=== PATIENT | male | born 1935 | race African-American/Black ===

== ENCOUNTER 2020-04-27 19:33 | Inpatient (IN) ==
[~2020-04-27 19:33] MED LIST: DEXAMETHASONE 10 MG/1 ML VIAL IV STA
[2020-04-27] MEDS ORDERED: SODIUM CHLORIDE 0.9% 1,000 ML IV STA ×2 (19:46→20:32)
[2020-04-27] MEDS ORDERED: ALBUTEROL 2.5 MG/3 ML NEB RESP TX STA (19:46)
[2020-04-27] MEDS ORDERED: ALBUTEROL/IPRATROPIUM 3 ML NEB RESP TX STA (19:46)
[2020-04-27] MEDS ORDERED: DEXAMETHASONE 10 MG/1 ML VIAL ONE (19:50)
[2020-04-27 20:13] LABS: ABG Base Excess -1.5 MMOL/L (-2.5-2.5); ABG Oxygen Saturation 89.5 % (95-100); ABG PCO2 32.8 MM HG (35-48); ABG PH 7.435 (7.35-7.45); ABG PO2 60.6 MM HG (80-95); ABG TCO2 19.8 MMOL/L (23-27); Allen Test Positive
[2020-04-27 20:15] LABS: Basophils % 0.1 % (0.0-0.8); Eosinophils % 0.1 % (0.00-10.9); Hematocrit 36.8 VOL% (42.0-52.0); Hemoglobin 10.9 GM/DL (14.0-18.0); Immature Granulocytes % 1.2 %; Immature Granulocytes Absolute 0.08 #; Lymphocytes # 0.6 10*3/uL (1.4-4.0); Mean Corpuscular HGB Conc 29.6 GM/DL (32-36); Mean Corpuscular Volume 100.8 FL (87-102); Mean Platelet Volume 10.5 FL (9.6-12.0); Monocytes % 4.8 % (1.7-12.7); Neutrophils % 84.8 % (38.7-73.9); Platelet Count 186 T/CUMM (130-400); Red Blood Count 3.65 MC/CUMM (3.8-5.5); Red Cell Distribution Width 13.1 % (9.3-17.3); White Blood Count 6.9 T/CUMM (4-12)
[2020-04-27] MEDS ORDERED: DEXAMETHASONE 10 MG/1 ML VIAL IV SCH (20:22)
[2020-04-27] MEDS ORDERED: VANCOMYCIN INJ 1,000 MG in SODIUM CHLORIDE 0.9% 250 ML IV STA (20:23)
[2020-04-27] MEDS ORDERED: PIPERACILLIN/TAZOBACTAM 3,375 MG in SODIUM CHLORIDE 0.9% 100 ML IV STA (20:23)
[2020-04-27] MEDS ORDERED: ACETAMINOPHEN 650 MG SUPP RECTAL STA (20:23)
[2020-04-27 20:29] LABS: Alanine Aminotransferase 11 U/L (16-61); Albumin 2.5 G/DL (3.4-5.0); Alkaline Phosphatase 72 U/L (45-117); Aspartate Amino Transferase 38 U/L (0-37); Blood Urea Nitrogen 59 MG/DL (7-18); Calcium 8.6 MG/DL (8.5-10.1); Estimated Glom Filtration Rate 22 ML/MIN; Glucose 88 MG/DL (74-106); Osmolality,Calculated 322.3 MOS/KG (273-304); Total Protein 7.1 G/DL (6.4-8.3)
[2020-04-27 20:30] LABS: Apearance,Urine CLOUDY (Clear); Bilirubin,Urine Negative (Negative); Blood, Urine Negative (Negative); Glucose,Urine (UA) Negative (Negative); Ketones,Urine 5 mg/dL (Negative); Mucus,Urine Occasional /LPF (Occasional); Nitrite,Urine Negative (Negative); Protein,Urine 100 MG/DL; Squamous Epithelial Cell,Urine Occasional /HPF (0-10); Urine Color Amber (Yellow); Urine Specific Gravity 1.018 (1.001-1.035); WBC,Urine 3 /HPF (0-6)
[2020-04-27] MEDS ORDERED: DILTIAZEM 50 MG/10 ML VIAL IV STA (20:32)
[2020-04-27 20:36] LABS: PT Patient Result 10.8 SECS (9.8-11.9)
[2020-04-27 20:38] LABS: Lymphocytes 8 % (20-55); Macrocytosis Slight; Platelet Estimate Adequate; Polychromasia Slight; Segmented Neutrophils 85 % (50-85); Total Cells Counted 100
[2020-04-27] MEDS ORDERED: NOREPINEPHRINE 4 MG/4 ML VIAL IV ONE (21:09)
[2020-04-27] MEDS ORDERED: ETOMIDATE 20 MG/10 ML VIAL IV STA (21:09)
[2020-04-27] MEDS ORDERED: ROCURONIUM 100 MG/10 ML VIAL IV STA (21:09)
[2020-04-27] MEDS ORDERED: ALBUTEROL 2.5 MG/3 ML NEB RESP TX PRN (22:08)
[2020-04-27] MEDS: dilTIAZem Drip 125 MG/125 ML PREMIX IV SCH (22:08)
[2020-04-27] MEDS ORDERED: FAMOTIDINE 20 MG/2 ML VIAL IV SCH (22:30)
[2020-04-27] MEDS: NOREPINEPHRINE 8 MG in SODIUM CHLORIDE 0.9% 242 ML IV PRN (23:13)
[2020-04-27] MEDS: SODIUM CHLORIDE 0.9% 1,000 ML IV SCH (23:13)
[2020-04-27] MEDS: METOPROLOL TARTRATE 5 MG/5 ML VIAL IV SCH (23:28)
[2020-04-27 23:29] LABS: ABG Base Excess -6.2 MMOL/L (-2.5-2.5); ABG HCO3 18.8 MMOL/L (20-26); ABG Oxygen Saturation 64.5 % (95-100); ABG PCO2 55.2 MM HG (35-48); ABG PH 7.214 (7.35-7.45); ABG PO2 46.6 MM HG (80-95); ABG TCO2 20.7 MMOL/L (23-27)
[2020-04-27 23:30] LABS: Allen Test Positive; Pt O2 Delivery Device Ventilator
[2020-04-27] MEDS ORDERED: SODIUM CHLORIDE 0.9% 500 ML IV ONE (23:58)
[2020-04-27] MEDS ORDERED: AMIODARONE INJ 150 MG in DEXTROSE 5% 100 ML IV ONE (23:59)
[2020-04-28 00:26] LABS: ABG Base Excess -7.7 MMOL/L (-2.5-2.5); ABG HCO3 18.2 MMOL/L (20-26); ABG Oxygen Saturation 91.9 % (95-100); ABG PCO2 38.8 MM HG (35-48); ABG PO2 73.9 MM HG (80-95); ABG TCO2 19.4 MMOL/L (23-27); Allen Test Positive; Pt O2 Delivery Device Ventilator
[2020-04-28 00:44] LABS: PT Patient Result 10.9 SECS (9.8-11.9)
[2020-04-28 04:57] LABS: Calcium 7.8 MG/DL (8.5-10.1); Osmolality,Calculated 327.3 MOS/KG (273-304)
[2020-04-28] MEDS: METOPROLOL TARTRATE 5 MG/5 ML VIAL IV SCH ×4 (05:23→20:42)
[2020-04-28 05:37] LABS: Basophils % 0.3 % (0.0-0.8); Hematocrit 33.9 VOL% (42.0-52.0); Immature Granulocytes % 1.4 %; Immature Granulocytes Absolute 0.11 #; Lymphocytes # 0.5 10*3/uL (1.4-4.0); Mean Corpuscular HGB Conc 29.8 GM/DL (32-36); Mean Corpuscular Volume 100.9 FL (87-102); Mean Platelet Volume 10.2 FL (9.6-12.0); Monocytes % 2.3 % (1.7-12.7); Platelet Count 159 T/CUMM (130-400); Red Blood Count 3.36 MC/CUMM (3.8-5.5); Red Cell Distribution Width 13.1 % (9.3-17.3); White Blood Count 7.8 T/CUMM (4-12)
[2020-04-28 05:38] LABS: ABG Base Excess -6.1 MMOL/L (-2.5-2.5); ABG HCO3 18.9 MMOL/L (20-26); ABG Oxygen Saturation 96.4 % (95-100); ABG PCO2 35.7 MM HG (35-48); ABG PH 7.342 (7.35-7.45); ABG PO2 94.2 MM HG (80-95); Allen Test Positive; Pt O2 Delivery Device Ventilator
[2020-04-28 05:42] LABS: Hemoglobin 10.1 GM/DL (14.0-18.0)
[2020-04-28] MEDS: SODIUM CHLORIDE 0.9% 1,000 ML IV SCH ×2 (06:36→17:00)
[2020-04-28 06:42] LABS: Lymphocytes 9 % (20-55); Platelet Estimate Adequate; Segmented Neutrophils 91 % (50-85); Total Cells Counted 100
[2020-04-28 06:43] LABS: Macrocytosis Slight
[2020-04-28] MEDS ORDERED: DEXAMETHASONE 10 MG/1 ML VIAL IV SCH (09:00)
[2020-04-28] MEDS: ZINC SULFATE 220 MG CAPSULE PO SCH (09:35)
[2020-04-28] MEDS: FAMOTIDINE 8 MG/ML 50 ML/BOTTLE PO SCH (09:35)
[2020-04-28] MEDS: PIPERACILLIN/TAZOBACTAM 3,375 MG in SODIUM CHLORIDE 0.9% 100 ML IV SCH ×2 (11:46→23:58)
[2020-04-28] MEDS: ENOXAPARIN 40 MG/0.4 ML SYRINGE SUBCUT SCH (20:42)
[2020-04-28] MEDS: dilTIAZem Drip 125 MG/125 ML PREMIX IV SCH (22:11)
[2020-04-29] MEDS: SODIUM CHLORIDE 0.9% 1,000 ML IV SCH ×4 (02:47→11:13)
[2020-04-29 04:14] LABS: ABG Base Excess -5.8 MMOL/L (-2.5-2.5); ABG Oxygen Saturation 98.5 % (95-100); ABG PCO2 29.6 MM HG (35-48); ABG PH 7.403 (7.35-7.45); ABG PO2 166.7 MM HG (80-95); Allen Test Positive; Pt O2 Delivery Device Ventilator
[2020-04-29 05:03] LABS: Basophils % 0.1 % (0.0-0.8); Hematocrit 30.6 VOL% (42.0-52.0); Hemoglobin 9.1 GM/DL (14.0-18.0); Immature Granulocytes % 1.3 %; Immature Granulocytes Absolute 0.13 #; Lymphocytes # 0.6 10*3/uL (1.4-4.0); Lymphocytes % 5.7 % (21.2-54.2); Mean Corpuscular HGB Conc 29.7 GM/DL (32-36); Mean Corpuscular Volume 99.4 FL (87-102); Mean Platelet Volume 10.3 FL (9.6-12.0); Monocytes % 3.5 % (1.7-12.7); NRBC # 0.03 10*3/uL; Neutrophils % 89.4 % (38.7-73.9); Platelet Count 145 T/CUMM (130-400); Red Blood Count 3.08 MC/CUMM (3.8-5.5); Red Cell Distribution Width 12.8 % (9.3-17.3); White Blood Count 9.8 T/CUMM (4-12)
[2020-04-29 05:16] LABS: Calcium 7.8 MG/DL (8.5-10.1); Osmolality,Calculated 326.3 MOS/KG (273-304)
[2020-04-29] MEDS: METOPROLOL TARTRATE 5 MG/5 ML VIAL IV SCH ×2 (05:28→12:41)
[2020-04-29] MEDS: FAMOTIDINE 8 MG/ML 50 ML/BOTTLE PO SCH (08:13)
[2020-04-29] MEDS: DEXAMETHASONE 4 MG/1 ML VIAL IV SCH (08:17)
[2020-04-29] MEDS: PIPERACILLIN/TAZOBACTAM 3,375 MG in SODIUM CHLORIDE 0.9% 100 ML IV SCH (11:13)
[2020-04-29] MEDS ORDERED: GLUCAGON 1 MG VIAL IM PRN (13:55)
[2020-04-29] MEDS ORDERED: DEXTROSE 50% 25 GM/50 ML VIAL IV PRN (13:55)
[2020-04-29] MEDS: SODIUM CHLORIDE 0.45% 1,000 ML IV SCH (18:05)
[2020-04-29] MEDS: INSULIN REGULAR 100 UNIT/ML SUBCUT SCH (18:16)
[2020-04-29] MEDS: ENOXAPARIN 40 MG/0.4 ML SYRINGE SUBCUT SCH (20:44)
[2020-04-29] MEDS: NYSTATIN 500,000 UNIT/5 ML UDCUP SWISH/SWAL SCH (20:44)
[2020-04-29] MEDS: METOPROLOL TARTRATE 25 MG TABLET PO SCH (21:00)
[2020-04-30] MEDS: ACETAMINOPHEN 325 MG TABLET PO PRN (00:31)
[2020-04-30] MEDS: PIPERACILLIN/TAZOBACTAM 3,375 MG in SODIUM CHLORIDE 0.9% 100 ML IV SCH ×2 (00:32→11:38)
[2020-04-30] MEDS: MIDAZOLAM 100 MG in SODIUM CHLORIDE 0.9% 80 ML IV PRN ×2 (00:59→14:37)
[2020-04-30] MEDS: dilTIAZem Drip 125 MG/125 ML PREMIX IV SCH ×2 (01:09→22:05)
[2020-04-30 04:59] LABS: Basophils % 0.1 % (0.0-0.8); Hematocrit 28.9 VOL% (42.0-52.0); Hemoglobin 8.8 GM/DL (14.0-18.0); Immature Granulocytes % 1.6 %; Immature Granulocytes Absolute 0.15 #; Lymphocytes # 0.7 10*3/uL (1.4-4.0); Lymphocytes % 7.1 % (21.2-54.2); Mean Corpuscular HGB Conc 30.4 GM/DL (32-36); Mean Corpuscular Volume 99.3 FL (87-102); Mean Platelet Volume 10.8 FL (9.6-12.0); Monocytes % 2.4 % (1.7-12.7); NRBC # 0.04 10*3/uL; Neutrophils % 88.8 % (38.7-73.9); Platelet Count 142 T/CUMM (130-400); Red Blood Count 2.91 MC/CUMM (3.8-5.5); Red Cell Distribution Width 12.6 % (9.3-17.3); White Blood Count 9.3 T/CUMM (4-12)
[2020-04-30 05:18] LABS: Calcium 7.9 MG/DL (8.5-10.1); Osmolality,Calculated 319.6 MOS/KG (273-304)
[2020-04-30] MEDS: INSULIN REGULAR 100 UNIT/ML SUBCUT SCH ×4 (06:37→17:33)
[2020-04-30] MEDS: DEXAMETHASONE 4 MG/1 ML VIAL IV SCH (08:31)
[2020-04-30] MEDS: NYSTATIN 500,000 UNIT/5 ML UDCUP SWISH/SWAL SCH ×3 (08:32→20:24)
[2020-04-30] MEDS: FAMOTIDINE 8 MG/ML 50 ML/BOTTLE PO SCH (08:32)
[2020-04-30] MEDS: ZINC SULFATE 220 MG CAPSULE PO SCH (08:32)
[2020-04-30] MEDS: METOPROLOL TARTRATE 25 MG TABLET PO SCH ×2 (08:41→20:24)
[2020-04-30] MEDS: SODIUM CHLORIDE 0.45% 1,000 ML IV SCH (14:43)
[2020-04-30] MEDS: ENOXAPARIN 40 MG/0.4 ML SYRINGE SUBCUT SCH (20:24)
[2020-05-01] MEDS: PIPERACILLIN/TAZOBACTAM 3,375 MG in SODIUM CHLORIDE 0.9% 100 ML IV SCH (00:41)
[2020-05-01] MEDS: INSULIN REGULAR 100 UNIT/ML SUBCUT SCH ×4 (00:42→17:39)
[2020-05-01] MEDS: ROCURONIUM 500 MG in SODIUM CHLORIDE 0.9% 500 ML IV PRN ×2 (03:50→19:19)
[2020-05-01 04:23] LABS: Basophils % 0.1 % (0.0-0.8); Eosinophils # 0.1 10*3/uL (0.0-0.87); Eosinophils % 0.9 % (0.00-10.9); Hematocrit 28.5 VOL% (42.0-52.0); Hemoglobin 8.8 GM/DL (14.0-18.0); Immature Granulocytes % 3.9 %; Lymphocytes # 0.7 10*3/uL (1.4-4.0); Lymphocytes % 8.9 % (21.2-54.2); Mean Corpuscular HGB Conc 30.9 GM/DL (32-36); Mean Corpuscular Volume 97.3 FL (87-102); Mean Platelet Volume 10.8 FL (9.6-12.0); Monocytes % 1.9 % (1.7-12.7); NRBC # 0.02 10*3/uL; Neutrophils % 84.3 % (38.7-73.9); Platelet Count 143 T/CUMM (130-400); Red Blood Count 2.93 MC/CUMM (3.8-5.5); Red Cell Distribution Width 12.7 % (9.3-17.3); White Blood Count 7.7 T/CUMM (4-12)
[2020-05-01 04:39] LABS: Calcium 7.6 MG/DL (8.5-10.1); Osmolality,Calculated 310.1 MOS/KG (273-304)
[2020-05-01 04:59] LABS: Macrocytosis Slight
[2020-05-01 05:00] LABS: Platelet Estimate Adequate
[2020-05-01 05:30] LABS: ABG Base Excess -6.6 MMOL/L (-2.5-2.5); ABG HCO3 18.9 MMOL/L (20-26); ABG PCO2 37.6 MM HG (35-48); ABG PH 7.313 (7.35-7.45); ABG PO2 68.6 MM HG (80-95); ABG TCO2 17.7 MMOL/L (23-27); Allen Test Positive; Pt O2 Delivery Device Ventilator
[2020-05-01] MEDS: MIDAZOLAM 100 MG in SODIUM CHLORIDE 0.9% 80 ML IV PRN (07:06)
[2020-05-01] MEDS: DEXAMETHASONE 4 MG/1 ML VIAL IV SCH (08:35)
[2020-05-01] MEDS: NYSTATIN 500,000 UNIT/5 ML UDCUP SWISH/SWAL SCH ×3 (08:35→20:45)
[2020-05-01] MEDS: METOPROLOL TARTRATE 25 MG TABLET PO SCH (08:35)
[2020-05-01] MEDS: FAMOTIDINE 8 MG/ML 50 ML/BOTTLE PO SCH (08:42)
[2020-05-01] MEDS: VANCOMYCIN INJ 1,250 MG in SODIUM CHLORIDE 0.9% 250 ML IV SCH (11:31)
[2020-05-01] MEDS: SODIUM CHLORIDE 0.45% 1,000 ML IV SCH (14:19)
[2020-05-01] MEDS: ENOXAPARIN 40 MG/0.4 ML SYRINGE SUBCUT SCH (20:45)
[2020-05-01] MEDS: dilTIAZem Drip 125 MG/125 ML PREMIX IV SCH (21:40)
[2020-05-02] MEDS: INSULIN REGULAR 100 UNIT/ML SUBCUT SCH ×3 (01:03→21:29)
[2020-05-02 03:58] LABS: Basophils % 0.2 % (0.0-0.8); Eosinophils # 0.1 10*3/uL (0.0-0.87); Eosinophils % 1.3 % (0.00-10.9); Hematocrit 32.1 VOL% (42.0-52.0); Hemoglobin 9.5 GM/DL (14.0-18.0); Immature Granulocytes % 5.1 %; Immature Granulocytes Absolute 0.48 #; Lymphocytes # 0.6 10*3/uL (1.4-4.0); Lymphocytes % 6.9 % (21.2-54.2); Mean Corpuscular HGB Conc 29.6 GM/DL (32-36); Mean Corpuscular Volume 102.2 FL (87-102); Mean Platelet Volume 10.8 FL (9.6-12.0); Monocytes % 3.1 % (1.7-12.7); NRBC # 0.04 10*3/uL; Neutrophils % 83.4 % (38.7-73.9); Platelet Count 154 T/CUMM (130-400); Red Blood Count 3.14 MC/CUMM (3.8-5.5); White Blood Count 9.3 T/CUMM (4-12)
[2020-05-02 04:12] LABS: Calcium 7.8 MG/DL (8.5-10.1); Osmolality,Calculated 302.6 MOS/KG (273-304)
[2020-05-02 04:26] LABS: Band Neutrophils 1 % (0-10); Lymphocytes 6 % (20-55); Segmented Neutrophils 90 % (50-85); Total Cells Counted 100
[2020-05-02 04:27] LABS: Hypochromasia Slight; Macrocytosis Slight; Platelet Estimate Normal
[2020-05-02 04:57] LABS: ABG Base Excess -6.8 MMOL/L (-2.5-2.5); ABG HCO3 19.8 MMOL/L (20-26); ABG Oxygen Saturation 93.5 % (95-100); ABG PCO2 44.4 MM HG (35-48); ABG PH 7.267 (7.35-7.45); ABG PO2 73.1 MM HG (80-95); ABG TCO2 21.2 MMOL/L (23-27); Allen Test Positive; Pt O2 Delivery Device Ventilator
[2020-05-02] MEDS: ROCURONIUM 500 MG in SODIUM CHLORIDE 0.9% 500 ML IV PRN ×2 (07:06→20:30)
[2020-05-02] MEDS: MIDAZOLAM 100 MG in SODIUM CHLORIDE 0.9% 80 ML IV PRN (07:19)
[2020-05-02] MEDS: FAMOTIDINE 8 MG/ML 50 ML/BOTTLE PO SCH (08:17)
[2020-05-02] MEDS: NYSTATIN 500,000 UNIT/5 ML UDCUP SWISH/SWAL SCH ×3 (08:17→20:13)
[2020-05-02] MEDS: ZINC SULFATE 220 MG CAPSULE PO SCH (08:18)
[2020-05-02] MEDS: DEXAMETHASONE 4 MG/1 ML VIAL IV SCH (08:20)
[2020-05-02] MEDS: ALBUTEROL 2.5 MG/3 ML NEB RESP TX SCH ×2 (11:30→20:08)
[2020-05-02] MEDS: VANCOMYCIN INJ 1,250 MG in SODIUM CHLORIDE 0.9% 250 ML IV SCH (11:49)
[2020-05-02] MEDS: SODIUM CHLORIDE 0.45% 1,000 ML IV SCH (11:50)
[2020-05-02] MEDS ORDERED: MAGNESIUM HYDROXIDE SUSP 30 ML UDCUP PO PRN (17:45)
[2020-05-02] MEDS ORDERED: POLYVINYL ALCOHOL 1.4% OPH SOLN 15 ML BOTTLE BOTH EYES PRN (17:45)
[2020-05-02] MEDS ORDERED: traMADol 50 MG TABLET PO PRN (17:45)
[2020-05-02] MEDS: DONEPEZIL 5 MG TABLET PO SCH (20:12)
[2020-05-02] MEDS: CARBIDOPA/LEVODOPA 25-100 MG TABLET PO SCH (20:12)
[2020-05-02] MEDS: BIMATOPROST 0.01% OPH SOLN 2.5 ML BOTTLE LEFT EYE SCH (20:13)
[2020-05-02] MEDS: ENOXAPARIN 40 MG/0.4 ML SYRINGE SUBCUT SCH (20:13)
[2020-05-02] MEDS: dilTIAZem Drip 125 MG/125 ML PREMIX IV SCH (21:31)
[2020-05-03] MEDS: ALBUTEROL 2.5 MG/3 ML NEB RESP TX SCH ×3 (01:00→23:08)
[2020-05-03] MEDS: INSULIN REGULAR 100 UNIT/ML SUBCUT SCH ×2 (03:23→20:21)
[2020-05-03 03:34] LABS: ABG Base Excess -5.9 MMOL/L (-2.5-2.5); ABG HCO3 21.2 MMOL/L (20-26); ABG Oxygen Saturation 94.6 % (95-100); ABG PCO2 49.7 MM HG (35-48); ABG PH 7.248 (7.35-7.45); ABG PO2 76.9 MM HG (80-95); ABG TCO2 22.7 MMOL/L (23-27); Allen Test Positive; Pt O2 Delivery Device Ventilator
[2020-05-03 05:06] LABS: Basophils % 0.2 % (0.0-0.8); Eosinophils # 0.2 10*3/uL (0.0-0.87); Eosinophils % 1.4 % (0.00-10.9); Hematocrit 30.6 VOL% (42.0-52.0); Immature Granulocytes % 3.8 %; Lymphocytes # 0.3 10*3/uL (1.4-4.0); Lymphocytes % 3.2 % (21.2-54.2); Mean Corpuscular HGB Conc 29.4 GM/DL (32-36); Mean Corpuscular Volume 100.3 FL (87-102); Monocytes % 4.6 % (1.7-12.7); NRBC # 0.02 10*3/uL; Neutrophils % 86.8 % (38.7-73.9); Platelet Count 151 T/CUMM (130-400); Red Blood Count 3.05 MC/CUMM (3.8-5.5); White Blood Count 10.5 T/CUMM (4-12)
[2020-05-03 05:37] LABS: Calcium 7.9 MG/DL (8.5-10.1)
[2020-05-03 05:58] LABS: Band Neutrophils 1 % (0-10); Lymphocytes 4 % (20-55); Segmented Neutrophils 94 % (50-85); Total Cells Counted 100
[2020-05-03 05:59] LABS: Macrocytosis Slight; Ovalocytes Slight; Platelet Estimate Adequate
[2020-05-03] MEDS: ROCURONIUM 500 MG in SODIUM CHLORIDE 0.9% 500 ML IV PRN ×2 (06:43→18:19)
[2020-05-03] MEDS: SODIUM CHLORIDE 0.45% 1,000 ML IV SCH ×2 (06:50→23:11)
[2020-05-03] MEDS: FERROUS SULFATE 325 MG TABLET PO SCH (08:00)
[2020-05-03] MEDS: CARBIDOPA/LEVODOPA 25-100 MG TABLET PO SCH ×3 (08:01→20:08)
[2020-05-03] MEDS: NYSTATIN 500,000 UNIT/5 ML UDCUP SWISH/SWAL SCH ×3 (08:01→20:07)
[2020-05-03] MEDS: FAMOTIDINE 8 MG/ML 50 ML/BOTTLE PO SCH (08:01)
[2020-05-03] MEDS: DEXAMETHASONE 4 MG/1 ML VIAL IV SCH (08:02)
[2020-05-03] MEDS: VANCOMYCIN INJ 1,250 MG in SODIUM CHLORIDE 0.9% 250 ML IV SCH (12:08)
[2020-05-03] MEDS: NOREPINEPHRINE 8 MG in SODIUM CHLORIDE 0.9% 242 ML IV PRN (13:36)
[2020-05-03] MEDS: MIDAZOLAM 100 MG in SODIUM CHLORIDE 0.9% 80 ML IV PRN (19:53)
[2020-05-03] MEDS: DONEPEZIL 5 MG TABLET PO SCH (20:07)
[2020-05-03] MEDS: ENOXAPARIN 40 MG/0.4 ML SYRINGE SUBCUT SCH (20:07)
[2020-05-03] MEDS: BIMATOPROST 0.01% OPH SOLN 2.5 ML BOTTLE LEFT EYE SCH (20:24)
[2020-05-03] MEDS: dilTIAZem Drip 125 MG/125 ML PREMIX IV SCH (23:09)
[2020-05-04 03:21] LABS: ABG HCO3 19.4 MMOL/L (20-26); ABG Oxygen Saturation 93.3 % (95-100); ABG PCO2 45.6 MM HG (35-48); ABG PH 7.267 (7.35-7.45); ABG PO2 69.9 MM HG (80-95); ABG TCO2 19.5 MMOL/L (23-27)
[2020-05-04 04:17] LABS: Basophils % 0.1 % (0.0-0.8); Eosinophils # 0.2 10*3/uL (0.0-0.87); Eosinophils % 2.1 % (0.00-10.9); Hematocrit 28.8 VOL% (42.0-52.0); Hemoglobin 8.7 GM/DL (14.0-18.0); Immature Granulocytes % 3.8 %; Immature Granulocytes Absolute 0.41 #; Lymphocytes # 0.3 10*3/uL (1.4-4.0); Lymphocytes % 2.9 % (21.2-54.2); Mean Corpuscular HGB Conc 30.2 GM/DL (32-36); Mean Platelet Volume 10.9 FL (9.6-12.0); Monocytes % 6.3 % (1.7-12.7); Neutrophils % 84.8 % (38.7-73.9); Platelet Count 162 T/CUMM (130-400); Red Blood Count 2.88 MC/CUMM (3.8-5.5); White Blood Count 10.7 T/CUMM (4-12)
[2020-05-04 04:31] LABS: Calcium 7.9 MG/DL (8.5-10.1); Osmolality,Calculated 293.1 MOS/KG (273-304)
[2020-05-04 04:41] LABS: Hypochromasia Slight; Lymphocytes 2 % (20-55); Macrocytosis Slight; Nucleated Red Blood Cells 1 (0-5); Platelet Estimate Normal; Segmented Neutrophils 98 % (50-85); Total Cells Counted 100
[2020-05-04] MEDS: SODIUM CHLORIDE 0.45% 1,000 ML IV SCH ×2 (05:38→19:25)
[2020-05-04] MEDS: ROCURONIUM 500 MG in SODIUM CHLORIDE 0.9% 500 ML IV PRN ×2 (05:39→16:32)
[2020-05-04] MEDS: VANCOMYCIN INJ 1,250 MG in SODIUM CHLORIDE 0.9% 250 ML IV SCH (05:39)
[2020-05-04] MEDS: INSULIN REGULAR 100 UNIT/ML SUBCUT SCH ×2 (05:40→20:58)
[2020-05-04] MEDS: CARBIDOPA/LEVODOPA 25-100 MG TABLET PO SCH ×3 (08:02→20:59)
[2020-05-04] MEDS: FERROUS SULFATE 325 MG TABLET PO SCH (08:02)
[2020-05-04] MEDS: NYSTATIN 500,000 UNIT/5 ML UDCUP SWISH/SWAL SCH ×3 (08:03→20:58)
[2020-05-04] MEDS: DEXAMETHASONE 4 MG/1 ML VIAL IV SCH (08:03)
[2020-05-04] MEDS: FAMOTIDINE 8 MG/ML 50 ML/BOTTLE PO SCH (08:03)
[2020-05-04] MEDS ORDERED: SODIUM POLYSTYRENE SULFATE 15 GM/60 ML BOTTLE RECTAL ONE (08:25)
[2020-05-04] MEDS ORDERED: FUROSEMIDE 40 MG/4 ML VIAL IV ONE (10:01)
[2020-05-04] MEDS: SODIUM BICARBONATE 650 MG TABLET PO SCH ×3 (10:31→20:59)
[2020-05-04] MEDS: ENOXAPARIN 40 MG/0.4 ML SYRINGE SUBCUT SCH (11:31)
[2020-05-04] MEDS: ALBUTEROL 2.5 MG/3 ML NEB RESP TX SCH ×2 (19:10→19:51)
[2020-05-04] MEDS: DONEPEZIL 5 MG TABLET PO SCH (20:58)
[2020-05-04] MEDS: BIMATOPROST 0.01% OPH SOLN 2.5 ML BOTTLE LEFT EYE SCH (20:58)
[2020-05-04] MEDS: dilTIAZem Drip 125 MG/125 ML PREMIX IV SCH (20:59)
[2020-05-05] MEDS: ENOXAPARIN 40 MG/0.4 ML SYRINGE SUBCUT SCH ×3 (00:45→23:22)
[2020-05-05] MEDS: VANCOMYCIN INJ 1,250 MG in SODIUM CHLORIDE 0.9% 250 ML IV SCH ×2 (00:55→18:02)
[2020-05-05] MEDS: ALBUTEROL 2.5 MG/3 ML NEB RESP TX SCH ×4 (02:27→19:33)
[2020-05-05 04:16] LABS: Basophils % 0.1 % (0.0-0.8); Eosinophils # 0.2 10*3/uL (0.0-0.87); Eosinophils % 1.7 % (0.00-10.9); Hematocrit 26.9 VOL% (42.0-52.0); Hemoglobin 8.2 GM/DL (14.0-18.0); Immature Granulocytes Absolute 0.46 #; Lymphocytes # 0.5 10*3/uL (1.4-4.0); Lymphocytes % 5.4 % (21.2-54.2); Mean Corpuscular HGB Conc 30.5 GM/DL (32-36); Mean Corpuscular Volume 97.5 FL (87-102); Mean Platelet Volume 10.6 FL (9.6-12.0); Monocytes % 6.7 % (1.7-12.7); NRBC # 0.03 10*3/uL; Neutrophils % 81.1 % (38.7-73.9); Platelet Count 184 T/CUMM (130-400); Red Blood Count 2.76 MC/CUMM (3.8-5.5); Red Cell Distribution Width 13.1 % (9.3-17.3); White Blood Count 9.3 T/CUMM (4-12)
[2020-05-05 04:33] LABS: Calcium 8.4 MG/DL (8.5-10.1); Osmolality,Calculated 292.4 MOS/KG (273-304)
[2020-05-05 04:36] LABS: ABG Base Excess -4.4 MMOL/L (-2.5-2.5); ABG HCO3 20.6 MMOL/L (20-26); ABG Oxygen Saturation 90.6 % (95-100); ABG PCO2 42.6 MM HG (35-48); ABG PH 7.313 (7.35-7.45); ABG PO2 63.3 MM HG (80-95); ABG TCO2 19.9 MMOL/L (23-27); Allen Test Positive; Pt O2 Delivery Device Ventilator
[2020-05-05] MEDS: INSULIN REGULAR 100 UNIT/ML SUBCUT SCH ×2 (05:54→20:28)
[2020-05-05] MEDS: NYSTATIN 500,000 UNIT/5 ML UDCUP SWISH/SWAL SCH ×3 (08:18→20:05)
[2020-05-05] MEDS: FAMOTIDINE 8 MG/ML 50 ML/BOTTLE PO SCH (08:18)
[2020-05-05] MEDS: SODIUM BICARBONATE 650 MG TABLET PO SCH ×3 (08:18→20:05)
[2020-05-05] MEDS: FERROUS SULFATE 325 MG TABLET PO SCH (08:18)
[2020-05-05] MEDS: DEXAMETHASONE 4 MG/1 ML VIAL IV SCH (08:18)
[2020-05-05] MEDS: CARBIDOPA/LEVODOPA 25-100 MG TABLET PO SCH ×3 (08:18→20:09)
[2020-05-05] MEDS: MIDAZOLAM 100 MG in SODIUM CHLORIDE 0.9% 80 ML IV PRN (08:39)
[2020-05-05] MEDS: SODIUM CHLORIDE 0.45% 1,000 ML IV SCH (15:40)
[2020-05-05] MEDS: DONEPEZIL 5 MG TABLET PO SCH (20:07)
[2020-05-05] MEDS: BIMATOPROST 0.01% OPH SOLN 2.5 ML BOTTLE LEFT EYE SCH (20:12)
[2020-05-05] MEDS: dilTIAZem Drip 125 MG/125 ML PREMIX IV SCH (21:07)
[2020-05-06] MEDS: ALBUTEROL 2.5 MG/3 ML NEB RESP TX SCH ×4 (00:30→19:25)
[2020-05-06] MEDS: INSULIN REGULAR 100 UNIT/ML SUBCUT SCH ×2 (04:17→21:48)
[2020-05-06 04:20] LABS: Basophils % 0.1 % (0.0-0.8); Eosinophils # 0.1 10*3/uL (0.0-0.87); Hematocrit 27.5 VOL% (42.0-52.0); Hemoglobin 8.2 GM/DL (14.0-18.0); Immature Granulocytes % 3.1 %; Immature Granulocytes Absolute 0.32 #; Lymphocytes # 0.5 10*3/uL (1.4-4.0); Lymphocytes % 4.5 % (21.2-54.2); Mean Corpuscular HGB Conc 29.8 GM/DL (32-36); Mean Corpuscular Volume 98.6 FL (87-102); Mean Platelet Volume 10.7 FL (9.6-12.0); Monocytes % 7.5 % (1.7-12.7); NRBC # 0.02 10*3/uL; Neutrophils % 83.8 % (38.7-73.9); Platelet Count 213 T/CUMM (130-400); Red Blood Count 2.79 MC/CUMM (3.8-5.5); Red Cell Distribution Width 13.2 % (9.3-17.3); White Blood Count 10.4 T/CUMM (4-12)
[2020-05-06 04:31] LABS: Calcium 8.5 MG/DL (8.5-10.1); Osmolality,Calculated 295.4 MOS/KG (273-304)
[2020-05-06 04:40] LABS: Hypochromasia 1+; Lymphocytes 4 % (20-55); Microcytosis Slight; Ovalocytes Slight; Platelet Estimate Adequate; Segmented Neutrophils 89 % (50-85); Total Cells Counted 100
[2020-05-06 04:48] LABS: ABG Base Excess -4.7 MMOL/L (-2.5-2.5); ABG Oxygen Saturation 85.8 % (95-100); ABG PCO2 48.1 MM HG (35-48); ABG PH 7.278 (7.35-7.45); ABG PO2 53.6 MM HG (80-95); ABG TCO2 23.5 MMOL/L (23-27); Allen Test Positive; Pt O2 Delivery Device Ventilator
[2020-05-06] MEDS ORDERED: SODIUM POLYSTYRENE SULFATE 15 GM/60 ML BOTTLE PO STA (07:37)
[2020-05-06] MEDS: FERROUS SULFATE 325 MG TABLET PO SCH (08:08)
[2020-05-06] MEDS: SODIUM BICARBONATE 650 MG TABLET PO SCH ×3 (08:08→20:08)
[2020-05-06] MEDS: NYSTATIN 500,000 UNIT/5 ML UDCUP SWISH/SWAL SCH ×3 (08:08→20:08)
[2020-05-06] MEDS: FAMOTIDINE 8 MG/ML 50 ML/BOTTLE PO SCH (08:08)
[2020-05-06] MEDS: CARBIDOPA/LEVODOPA 25-100 MG TABLET PO SCH ×3 (08:08→20:08)
[2020-05-06] MEDS: DEXAMETHASONE 4 MG/1 ML VIAL IV SCH (08:08)
[2020-05-06] MEDS: MORPHINE 4 MG/1 ML VIAL IV PRN ×2 (09:37→15:27)
[2020-05-06] MEDS: HEPARIN DRIP 25,000 UNITS/500 ML PREMIX IV SCH (09:38)
[2020-05-06] MEDS ORDERED: SODIUM POLYSTYRENE SULFATE 15 GM/60 ML BOTTLE PO SCH ×2 (12:00→18:00)
[2020-05-06] MEDS: SODIUM CHLORIDE 0.45% 1,000 ML IV SCH (13:04)
[2020-05-06] MEDS: VANCOMYCIN INJ 1,250 MG in SODIUM CHLORIDE 0.9% 250 ML IV SCH (13:28)
[2020-05-06] MEDS ORDERED: CALCIUM GLUCONATE 1,000 MG in SODIUM CHLORIDE 0.9% 100 ML IV ONE ×2 (15:47→19:00)
[2020-05-06] MEDS ORDERED: INSULIN REGULAR 100 UNIT/ML IV ONE (17:43)
[2020-05-06] MEDS ORDERED: DEXTROSE 50% 25 GM/50 ML VIAL IV ONE (18:00)
[2020-05-06] MEDS ORDERED: VANCOMYCIN INJ 1,250 MG in SODIUM CHLORIDE 0.9% 250 ML IV SCH (18:00)
[2020-05-06] MEDS: SODIUM POLYSTYRENE SULFATE 15 GM/60 ML BOTTLE PO SCH ×2 (18:09→21:03)
[2020-05-06] MEDS: DONEPEZIL 5 MG TABLET PO SCH (20:08)
[2020-05-06] MEDS: BIMATOPROST 0.01% OPH SOLN 2.5 ML BOTTLE LEFT EYE SCH (20:09)
[2020-05-06] MEDS: dilTIAZem Drip 125 MG/125 ML PREMIX IV SCH (21:51)
[2020-05-06] MEDS ORDERED: SODIUM BICARB INJ 50 MEQ in DEXTROSE 5% 1,000 ML IV SCH (22:00)
[2020-05-06] MEDS: MIDAZOLAM 100 MG in SODIUM CHLORIDE 0.9% 80 ML IV PRN (23:50)
[2020-05-07] MEDS: MORPHINE 4 MG/1 ML VIAL IV PRN (00:21)
[2020-05-07] MEDS: NOREPINEPHRINE 8 MG in SODIUM CHLORIDE 0.9% 242 ML IV PRN ×2 (01:28→17:40)
[2020-05-07] MEDS ORDERED: NOREPINEPHRINE 4 MG/4 ML VIAL IV ONE (01:30)
[2020-05-07] MEDS ORDERED: SODIUM BICARBONATE 50 MEQ/50 ML VIAL IV ONE ×2 (01:35→01:39)
[2020-05-07] MEDS: ALBUTEROL 2.5 MG/3 ML NEB RESP TX SCH ×4 (01:50→19:31)
[2020-05-07] MEDS: ACETAMINOPHEN 325 MG TABLET PO PRN ×2 (01:53→05:58)
[2020-05-07] MEDS: ROCURONIUM 500 MG in SODIUM CHLORIDE 0.9% 500 ML IV PRN (01:53)
[2020-05-07 01:57] LABS: ABG Base Excess -0.6 MMOL/L (-2.5-2.5); ABG HCO3 23.7 MMOL/L (20-26); ABG Oxygen Saturation 84.3 % (95-100); ABG TCO2 27.4 MMOL/L (23-27)
[2020-05-07 01:58] LABS: ABG PCO2 73.6 MM HG (35-48); ABG PH 7.199 (7.35-7.45)
[2020-05-07] MEDS ORDERED: VECURONIUM 10 MG VIAL IV ONE ×3 (02:04→02:06)
[2020-05-07] MEDS: SODIUM POLYSTYRENE SULFATE 15 GM/60 ML BOTTLE PO SCH ×4 (02:17→20:27)
[2020-05-07] MEDS: INSULIN REGULAR 100 UNIT/ML SUBCUT SCH ×2 (04:30→22:01)
[2020-05-07 04:48] LABS: Basophils % 0.1 % (0.0-0.8); Eosinophils # 0.1 10*3/uL (0.0-0.87); Eosinophils % 0.7 % (0.00-10.9); Hemoglobin 8.1 GM/DL (14.0-18.0); Immature Granulocytes Absolute 0.27 #; Lymphocytes # 0.3 10*3/uL (1.4-4.0); Lymphocytes % 2.3 % (21.2-54.2); Mean Platelet Volume 10.4 FL (9.6-12.0); Monocytes % 7.1 % (1.7-12.7); NRBC # 0.03 10*3/uL; Neutrophils % 87.8 % (38.7-73.9); Platelet Count 241 T/CUMM (130-400); Red Cell Distribution Width 13.3 % (9.3-17.3); White Blood Count 13.7 T/CUMM (4-12)
[2020-05-07 05:08] LABS: Band Neutrophils 2 % (0-10); Hypochromasia 1+; Lymphocytes 2 % (20-55); Microcytosis Slight; Ovalocytes Slight; Platelet Estimate Adequate; Segmented Neutrophils 90 % (50-85); Total Cells Counted 100
[2020-05-07 05:12] LABS: Calcium 8.9 MG/DL (8.5-10.1); Osmolality,Calculated 302.4 MOS/KG (273-304)
[2020-05-07 06:04] LABS: ABG Base Excess -2.7 MMOL/L (-2.5-2.5); ABG HCO3 22.1 MMOL/L (20-26); ABG Oxygen Saturation 92.8 % (95-100); ABG PCO2 65.1 MM HG (35-48); ABG PH 7.213 (7.35-7.45); ABG PO2 71.2 MM HG (80-95); ABG TCO2 24.7 MMOL/L (23-27)
[2020-05-07] MEDS: SODIUM BICARBONATE 650 MG TABLET PO SCH ×3 (08:15→20:11)
[2020-05-07] MEDS: CARBIDOPA/LEVODOPA 25-100 MG TABLET PO SCH ×3 (08:15→20:11)
[2020-05-07] MEDS: FERROUS SULFATE 325 MG TABLET PO SCH (08:15)
[2020-05-07] MEDS: DEXAMETHASONE 4 MG/1 ML VIAL IV SCH (08:16)
[2020-05-07] MEDS: FAMOTIDINE 8 MG/ML 50 ML/BOTTLE PO SCH (08:16)
[2020-05-07] MEDS: HEPARIN DRIP 25,000 UNITS/500 ML PREMIX IV SCH (08:22)
[2020-05-07] MEDS ORDERED: DEXTROSE 50% 25 GM/50 ML SYRINGE IV ONE (08:58)
[2020-05-07] MEDS ORDERED: EPINEPHrine 1 MG/10 ML SYRINGE ONE (08:58)
[2020-05-07] MEDS ORDERED: CALCIUM CHLORIDE 1,000 MG/10 ML SYRINGE IV ONE (08:58)
[2020-05-07] MEDS ORDERED: SODIUM BICARBONATE 50 MEQ/50 ML SYRINGE IV ONE (08:58)
[2020-05-07] MEDS ORDERED: INSULIN REGULAR 100 UNIT/ML IV ONE (09:05)
[2020-05-07 09:36] LABS: Calcium 8.4 MG/DL (8.5-10.1); Osmolality,Calculated 307.3 MOS/KG (273-304)
[2020-05-07] MEDS: SODIUM BICARB INJ 150 MEQ in DEXTROSE 5% 850 ML IV SCH ×2 (12:28→21:00)
[2020-05-07] MEDS ORDERED: FUROSEMIDE 40 MG/4 ML VIAL IV ONE (14:00)
[2020-05-07 15:13] LABS: Calcium 8.4 MG/DL (8.5-10.1); Osmolality,Calculated 305.4 MOS/KG (273-304)
[2020-05-07] MEDS: MIDAZOLAM 100 MG in SODIUM CHLORIDE 0.9% 80 ML IV PRN (18:15)
[2020-05-07 19:46] LABS: Osmolality,Calculated 307.3 MOS/KG (273-304)
[2020-05-07] MEDS: DONEPEZIL 5 MG TABLET PO SCH (20:11)
[2020-05-07] MEDS: BIMATOPROST 0.01% OPH SOLN 2.5 ML BOTTLE LEFT EYE SCH (20:27)
[2020-05-07] MEDS: dilTIAZem Drip 125 MG/125 ML PREMIX IV SCH (21:55)
[2020-05-07] MEDS: METOPROLOL TARTRATE 5 MG/5 ML VIAL IV PRN ×3 (22:30→22:40)
[2020-05-07] MEDS ORDERED: AMIODARONE INJ 150 MG in DEXTROSE 5% 100 ML IV ONE (22:42)
[2020-05-07] MEDS ORDERED: AMIODARONE 150 MG/3 ML VIAL ONE (22:43)
[2020-05-07] MEDS ORDERED: AMIODARONE 450 MG/9 ML VIAL IV ONE (22:44)
[2020-05-07] MEDS ORDERED: AMIODARONE INJ 450 MG in DEXTROSE 5% 241 ML IV SCH (23:00)
[2020-05-08] MEDS: ALBUTEROL 2.5 MG/3 ML NEB RESP TX SCH ×2 (00:13→07:00)
[2020-05-08] MEDS: HEPARIN DRIP 25,000 UNITS/500 ML PREMIX IV SCH ×2 (02:18→09:35)
[2020-05-08] MEDS: SODIUM POLYSTYRENE SULFATE 15 GM/60 ML BOTTLE PO SCH ×3 (02:39→09:56)
[2020-05-08 02:54] LABS: Basophils % 0.2 % (0.0-0.8); Eosinophils # 0.1 10*3/uL (0.0-0.87); Eosinophils % 0.3 % (0.00-10.9); Hematocrit 27.1 VOL% (42.0-52.0); Immature Granulocytes % 4.1 %; Immature Granulocytes Absolute 0.69 #; Lymphocytes # 0.6 10*3/uL (1.4-4.0); Lymphocytes % 3.7 % (21.2-54.2); Mean Corpuscular HGB Conc 29.5 GM/DL (32-36); Mean Corpuscular Volume 101.9 FL (87-102); Monocytes % 5.7 % (1.7-12.7); Platelet Count 352 T/CUMM (130-400); Red Blood Count 2.66 MC/CUMM (3.8-5.5); Red Cell Distribution Width 13.3 % (9.3-17.3)
[2020-05-08 03:07] LABS: Calcium 8.3 MG/DL (8.5-10.1); Osmolality,Calculated 309.3 MOS/KG (273-304)
[2020-05-08 03:14] LABS: Band Neutrophils 2 % (0-10); Eosinophils 1 % (0-10); Hypochromasia Slight; Lymphocytes 5 % (20-55); Myelocytes 1 %; Nucleated Red Blood Cells 1 (0-5); Platelet Estimate Normal; Segmented Neutrophils 86 % (50-85); Total Cells Counted 100
[2020-05-08 03:15] LABS: Macrocytosis Slight
[2020-05-08 03:17] LABS: ABG Base Excess 1.1 MMOL/L (-2.5-2.5); ABG HCO3 25.2 MMOL/L (20-26); ABG Oxygen Saturation 87.6 % (95-100); ABG PCO2 68.4 MM HG (35-48); ABG PH 7.244 (7.35-7.45); ABG PO2 60.6 MM HG (80-95); ABG TCO2 28.1 MMOL/L (23-27); Allen Test Positive; Pt O2 Delivery Device Ventilator
[2020-05-08 03:44] VITALS: BP 87/60
[2020-05-08] MEDS: INSULIN REGULAR 100 UNIT/ML SUBCUT SCH (04:02)
[2020-05-08] MEDS: dilTIAZem Drip 125 MG/125 ML PREMIX IV SCH (04:29)
[2020-05-08] MEDS ORDERED: AMIODARONE INJ 450 MG in DEXTROSE 5% 241 ML IV SCH (04:59)
[2020-05-08] MEDS: NOREPINEPHRINE 8 MG in SODIUM CHLORIDE 0.9% 242 ML IV PRN ×2 (05:00→09:14)
[2020-05-08] MEDS: SODIUM BICARB INJ 150 MEQ in DEXTROSE 5% 850 ML IV SCH (05:30)
[2020-05-08 07:01] LABS: Calcium 8.1 MG/DL (8.5-10.1); Osmolality,Calculated 304.5 MOS/KG (273-304)
[2020-05-08] MEDS: FAMOTIDINE 8 MG/ML 50 ML/BOTTLE PO SCH ×2 (08:37→09:54)
[2020-05-08] MEDS: FERROUS SULFATE 325 MG TABLET PO SCH ×2 (08:37→09:54)
[2020-05-08] MEDS: CARBIDOPA/LEVODOPA 25-100 MG TABLET PO SCH ×2 (08:37→09:54)
[2020-05-08] MEDS: SODIUM BICARBONATE 650 MG TABLET PO SCH ×2 (08:37→09:54)
[2020-05-08] MEDS: DEXAMETHASONE 4 MG/1 ML VIAL IV SCH (08:38)
[2020-05-08] MEDS ORDERED: VANCOMYCIN INJ 1,250 MG in SODIUM CHLORIDE 0.9% 250 ML IV SCH (12:00)
[2020-05-09] MEDS ORDERED: ERGOCALCIFEROL 50,000 UNIT CAPSULE PO SCH (09:00)
== END 2020-05-08 09:35 | disposition expired | DRG 870 ==
LOC: EDBD → EDUNIT# → N.ED 19:33 → N.EDINP 22:08 → SUATTDRO 22:08 → N.CC 22:51
PROVIDERS: ADMIT Internal Medicine Cardiovascular Disease; ATTEND Internal Medicine